=== PATIENT | male | born 1970 | race Caucasian/White ===

== ENCOUNTER 2016-11-09 19:52 | Emergency (ER) | payer BC, OTHER ==
[~2016-11-09] VITALS: Ht 188 cm; Wt 81.7 kg
[2016-11-09] MEDS ORDERED: PROSCAR 5MG TABL5 MG PO (19:57)
[2016-11-09 22:19] VITALS: BP 120/70
== END 2016-11-09 22:32 | disposition home or self-care (01) ==
LOC: ER 19:52
DX: S61.511A Laceration without foreign body of right wrist, initial encounter (principal); S61.412A Laceration without foreign body of left hand, initial encounter; F10.99 Alcohol use, unspecified with unspecified alcohol-induced disorder; Z88.0 Allergy status to penicillin; Z88.2 Allergy status to sulfonamides; W25.XXXA Contact with sharp glass, initial encounter; Y93.89 Activity, other specified; Y92.89 Other specified places as the place of occurrence of the external cause; Y99.8 Other external cause status